=== PATIENT | male | born 1980 | race Caucasian/White ===

== ENCOUNTER 2017-03-13 17:38 | Emergency (ER) | payer OTHER ==
[~2017-03-13 17:38] MED LIST: ORUDIS75 M1 DOB; VICODIN PO
[2017-03-13] MEDS ORDERED: NO MEDICATIONS (17:41)
== END 2017-03-13 18:18 | disposition home or self-care (01) ==
LOC: SED 17:38
DX: S90.511A Abrasion, right ankle, initial encounter (principal); S80.812A Abrasion, left lower leg, initial encounter; L03.116 Cellulitis of left lower limb; F17.200 Nicotine dependence, unspecified, uncomplicated; X58.XXXA Exposure to other specified factors, initial encounter; Y92.009 Unspecified place in unspecified non-institutional (private) residence as the place of occurrence of the external cause
CPT/HCPCS: 99283